=== PATIENT | male | born 1960 | race Two or more races ===

== ENCOUNTER 2020-08-06 16:55 | Emergency (ER) | payer OTHER ==
[~2020-08-06] VITALS: Ht 182.9 cm; Wt 99.8 kg
[2020-08-06] MEDS ORDERED: MOXIFLOXACIN3 M1 OP ×2 (21:25→21:39)
[2020-08-06] MEDS ORDERED: PEPCID AC20 MG PO (21:41)
[2020-08-06] MEDS ORDERED: NAPROXEN375 MG PO (21:41)
[2020-08-07] MEDS ORDERED: NAPROXEN375 MG (02:12)
== END 2020-08-06 21:55 | disposition home or self-care (01) ==
LOC: ER 16:55
DX: H57.89 Other specified disorders of eye and adnexa (principal); T15.02XA Foreign body in cornea, left eye, initial encounter; T15.01XA Foreign body in cornea, right eye, initial encounter; W45.8XXA Other foreign body or object entering through skin, initial encounter; Y93.89 Activity, other specified; Y92.89 Other specified places as the place of occurrence of the external cause; Y99.8 Other external cause status